=== PATIENT | male | born 1975 | race African-American/Black ===

== ENCOUNTER 2021-01-28 12:02 | Outpatient (REF) | payer OTHER, SELFPAY ==
[2021-01-28 14:26] LABS: Alanine Aminotransferase 28 U/L (0-40); Albumin Level 4.4 g/dL (3.5-5.0); Alkaline Phosphatase 71 U/L (39-117); Anion Gap 13 (12-20); Aspartate Amino Transferase 15 U/L (5-37); Bilirubin Total 0.5 mg/dL (0.0-1.0); Blood Urea Nitrogen 20 mg/dL (9-16); Calcium 9.3 mg/dL (8.4-10.2); Carbon Dioxide 24 mmol/L (22-29); Chloride 106 mmol/L (96-108); Cholesterol 139 mg/dL; Estimated Glomerular Filt Rate 54; Glucose Fasting 227 mg/dL (60-99); HDL Cholesterol 41 mg/dL; LDL Cholesterol Calculated 81 mg/dl; Potassium 4.9 mmol/L (3.3-5.1); Sodium 138 mmol/L (135-145); Total Protein 7.3 g/dL (6.5-8.0); Triglycerides 88 mg/dL
[2021-01-28 14:29] LABS: Creatinine Urine 142.81 mg/dL; Microalbum/Creatinine Ratio Ur 151.9 ug/mg cr
[2021-01-28 14:35] LABS: Estimated Average Glucose 246 mg/dL; Hemoglobin A1c % 10.2 %
== END 2021-01-28 12:03 | disposition home or self-care (01) ==
LOC: HO.HMGCLDS 12:02
PROVIDERS: PCP Internal Medicine; Visit Provider Internal Medicine
DX: E11.29 Type 2 diabetes mellitus with other diabetic kidney complication (principal); E78.5 Hyperlipidemia, unspecified; I10 Essential (primary) hypertension
CPT/HCPCS: 36415; 80053; 80061; 82043; 83036

== ENCOUNTER 2021-05-18 11:15 | Outpatient (REF) | payer OTHER, SELFPAY ==
[2021-05-18 14:06] LABS: Estimated Average Glucose 258 mg/dL; Hemoglobin A1c % 10.6 %
[2021-05-18 14:34] LABS: Alanine Aminotransferase 29 U/L (0-40); Anion Gap 11 (12-20); Aspartate Amino Transferase 16 U/L (5-37); Blood Urea Nitrogen 13 mg/dL (9-16); Calcium 8.9 mg/dL (8.4-10.2); Carbon Dioxide 27 mmol/L (22-29); Chloride 108 mmol/L (96-108); Cholesterol 99 mg/dL; Estimated Glomerular Filt Rate 60; Glucose Fasting 129 mg/dL (60-99); HDL Cholesterol 35 mg/dL; LDL Cholesterol Calculated 54 mg/dl; Potassium 4.7 mmol/L (3.3-5.1); Sodium 141 mmol/L (135-145); Triglycerides 53 mg/dL
== END 2021-05-18 11:16 | disposition home or self-care (01) ==
LOC: HO.HMGCLDS 11:15
PROVIDERS: PCP Internal Medicine; Visit Provider Internal Medicine
DX: E11.29 Type 2 diabetes mellitus with other diabetic kidney complication (principal); I10 Essential (primary) hypertension; E78.5 Hyperlipidemia, unspecified
CPT/HCPCS: 36415; 80048; 80061; 83036; 84450; 84460

== ENCOUNTER 2023-06-13 13:32 | Outpatient (AMB) | payer OTHER, SELFPAY ==
--- NOTE | 2023-06-13 13:31 | MHC.PC.OV ---
Vital Signs 06/13/23 14:10 Height 5 ft 8 in Weight 192 lb BMI 29.2 BP 120/70 Blood Pressure Location Lt brachial Position Sitting Pulse 75 Pulse Source Pulse Oximeter Pulse Oximetry (%) 97 Oxygen Delivery Method Room Air Intake Visit Reasons: Annual PE/Overdue last seen 05/24 Intake Note: patient is here today for annual f/u Allergies No Known Allergies Allergy (Verified 06/13/23 14:15) Medication List - Last Reconciled 06/13/23 by Leila Barker MD atorvastatin 20 mg PO DAILY flash glucose scanning reader ([employer] Felicia 2 Ulysses) As directed flash glucose sensor (FreeStyle Felicia 14 Day Sensor kit) As directed-need PCP appt for more refills insulin glargine (Lantus Solostar U-100 Insulin) 62 units subcut QPM lisinopril 10 mg PO QAM pen needle, diabetic (BD Ultra-Fine Camelia Pen Needle) As directed once a day Tobacco use date assessed: 06/13/23 Dental Screening Dental Screen Date: 06/13/23 Did you have a dental visit in the last 12 months?: No Did you have a dental problem in the last 6 months where you did not have access to dental care?: No Was dental information given to patient?: Yes HPI Annual PE/Overdue last seen 05/24 HPI Details 47-year-old male with diabetes mellitus, hypertension, dyslipidemia, here today for his physical exam and follow-up. He has been noncompliant with his follow-up appointments and taking his medications, his latest hemoglobin A1c today is at 11.8%. He is overdue for his diabetes retinopathy screening in a foot exam. [facility] Medical History (Updated 06/13/23 @ 14:35 by Leila Barker MD) Rash of both feet Diabetes mellitus with kidney complication, with long-term current use of insulin Essential hypertension Type 2 diabetes mellitus with other diabetic kidney complication Surgical History No pertinent past surgical history Family History Father Diabetes mellitus Mother Diabetes mellitus Maternal Grandfather Diabetes mellitus Maternal Grandmother Diabetes mellitus Paternal Grandfather Diabetes mellitus Paternal Grandmother Diabetes mellitus Maternal Uncle Substance use disorder Mental health disorder Maternal Uncle Substance use disorder Mental health disorder Paternal Uncle Substance use disorder Mental health disorder Paternal Uncle Substance use disorder Mental health disorder Social History Housing: House Alcohol intake: current Alcohol intake frequency: a few times a month Patient Tobacco Use Status: Never used Tobacco Current occupational status: employed Questionnaire PHQ-9 Over the last 2 weeks, how often have you been bothered by any of the following problems? 1. Little interest or pleasure in doing things: not at all 2. Feeling down, depressed, or hopeless: several days 3. Trouble falling or staying asleep, or sleeping too much: several days 4. Feeling tired or having little energy: several days 5. Poor appetite or overeating: not at all 6. Feeling bad about yourself - or that you are a failure or have let yourself or your family down: not at all 7. Trouble concentrating on things, such as reading the newspaper or watching television: not at all 8. Moving or speaking so slowly that other people could have noticed. Or the opposite - being so fidgety or restless that you have been moving around a lot more than usual: not at all 9. Thoughts that you would be better off or of hurting yourself in some way: not at all Total score: 3 Depression Screening Interpretation: Negative Depression Screening Done: Yes 74387 - PHQ-9 Billing: Yes Source: Developed by Drs. Kai Lawson, Dian Alvarez, Umer Castillo and colleagues, with an educational ladonna from [employer]. Thrive Questionnaire Date Thrive assessed: 06/13/23 I am a: Patient What is your living situation today?: I have a steady place to live Within the past 12 months, did the food you bought not last and you didn't have the money to get more?: Never true Within the past 12 months, did you worry whether your food would run out before you got money to buy more?: Never true Do you have trouble paying for medicines?: No Do you have trouble getting transportation to medical appointments?: No Do you have trouble paying your heating and electricity bill?: No Do you have trouble taking care of your child, family member or friend?: No Do you have trouble with day-to-day activities such as bathing, preparing meals, shopping, managing finances, etc.?: No Are you currently unemployed and looking for a job?: No Are you interested in more education?: Yes AUDIT C Alcohol Use Questionnaire (AUDIT-C) 1. How often do you have a drink containing alcohol?: Monthly or less 2. How many drinks containing alcohol do you have on a typical day when you are drinking?: 1 or 2 Total Score: 1 TERESA-7 AMB Questionnaire TERESA-7 Date TERESA - 7 assessed: 06/13/23 Feeling nervous, anxious, or on edge: 1 = Several days Not being able to stop or control worryin = Not at all Worrying too much about different things: 3 = Nearly every day Trouble relaxin = More than half the days Being so restless that it is hard to sit still: 0 = Not at all Becoming easily annoyed or irritable: 1 = Several days Feeling afraid as if something awful might happen: 0 = Not at all Total TERESA-7 score (0-4 normal; 5-9 mild; 10-14 moderate; 15-21 severe): 7 Source: Developed by Drs. Kai Lawson, Dian Alvarez, Umer Castillo and colleagues, with an educational ladonna from [employer]. TERESA-7 Assessment Billing TERESA-7 Assessment Tool: TERESA-7 Assessment 80975 Review of Systems Const Denies body aches, Reports fatigue, Denies fever(s), Denies headache(s), Reports malaise and Denies weakness Eyes Denies change in vision, Denies eye discharge and Denies itchy eyes ENT Denies dizziness, Denies headache(s), Denies nasal congestion, Denies nasal discharge and Denies sore throat Card Denies chest pain, Denies lightheadedness, Denies palpitations and Denies dyspnea Resp Denies chest congestion, Denies cough, Denies dyspnea and Denies wheezing GI Denies abdominal pain, Denies change in bowel habits and Denies heartburn Denies hematuria, Denies difficulty urinating, Denies dysuria, Reports nocturia, Reports urinary frequency and Reports urinary urgency Musc Denies arthralgias and Denies joint swelling Skin/Breast Denies lesions and Reports rash (Erythematous patch on sides of feet as well as on the plantar aspect.) Neuro Denies dizziness, Denies headache(s) and Denies weakness Psych Reports no additional complaints Endo Reports fatigue, Reports polydipsia, Reports polyuria and Denies palpitations Demar/Lymph Denies easy bruising Aller/Immun Denies itchy eyes, Denies seasonal rhinorrhea and Denies wheezing Physical exam (Primary Care) Vital Signs: Last Vital Signs Pulse 75 06/13/23 14:10 BP 120/70 06/13/23 14:10 Pulse Ox 97 06/13/23 14:10 Oxygen Delivery Method Room Air 06/13/23 14:10 BMI result Body Mass Index 29.2 Tobacco/Smoking Status: Tobacco use Status Tobacco use date assessed 06/13/23 06/13/23 14:18 Patient Tobacco Use Status Never used Tobacco 06/13/23 13:32 PHQ-9: PHQ-9 Score PHQ-9: Total score 3 06/13/23 14:30 Depression Screening Interpretation: Negative Thrive Assessment: Date of Thrive Assessment Date Thrive assessed 06/13/23 06/13/23 14:18 Const General: cooperative, comfortable and no acute distress Orientation/consciousness: patient oriented x3 Limitations: no limitations HENMT Head: Yes normocephalic Ears: hearing grossly normal bilaterally, external ears normal, TM's normal bilaterally and EAC's normal Eyes General: appearance normal, both eyes and all related structures Conjunctivae: conjunctivae normal Pupils: Equal, round and reactive pupils present EOM: EOMs intact bilaterally Neck Neck: Yes full ROM, Yes no lymphadenopathy and Yes supple Resp Effort & Inspection: normal respiratory effort and able to speak in complete sentences Auscultation: clear to auscultation bilaterally Cardio Rate: regular rate Rhythm: regular rhythm Heart sounds: S1 normal heart sound present and S2 normal heart sound present GI Inspection: Yes normal to inspection Palpation (GI): Soft to palpation, Firmness to palpation present (GI), nontender and no masses Auscultation: normal bowel sounds Skin Other: Erythematous patch on medial aspect of feet, and on plantar aspect as well Neuro General: patient oriented x3, gait normal, tone normal, moves all extremities, Normal light touch and pain sensation and no focal motor deficits Cranial nerves: Yes Equal, round and reactive pupils present Cognition (Neuro): normal cognition Gait exam (Neuro): Normal gait present Motor exam (neuro): 5/5 motor strength present throughout Extrem General: Yes normal to inspection, Yes full ROM, Yes no joint enlargement, Yes no clubbing, cyanosis or edema, Yes no pedal edema, Yes no calf tenderness and Yes normal gait Psych Appearance: grossly normal and well kempt Mental Status: mental status grossly normal Speech and movement: Normal speech and movement present Affect: normal affect Attitude: cooperative Office Procedures Flu Questionnaire Does the patient have a severe egg allergy?: No Does the patient have severe life threatening allergies?: No Does the patient have a fever or illness today?: No Has the patient ever had Guillain-[place] Syndrome?: No Has the patient ever had any past reaction to a flu shot?: No Results AMB Hemoglobin A1c AMB Hemoglobin A1c 11.8 % Last Edit by Yesenia Ghotra CMA on 06/13/23 14:21 Immunizations flu vacc [id number] 6mos up(PF) 60 mcg(15 mcgx4)/0.5 mL IM syringe Performing Provider: Leila Barker MD Performing Location: [facility] Administered by: Yesenia Ghotra CMA on 06/13/23 14:26 Dose Route Admin Location Dispensed Lot Number Expiration Date NDC Shim Plug Cutter 0.5 mL IM Right Deltoid 0.5 mL [id number] 03/02/24 [id number] GetBulb VIS Given Date VIS Provided VIS Publication Date 06/13/23 Single Vaccine 21 Eligibility Eligibility Date Funding Source Not VFC Eligible 06/13/23 Private Results Reviewed Results Reviewed: Laboratory Last Values Hgb A1c (Clinic) 11.8 % (4.0-6.0) H 06/13/23 14:19 Assessment and Plan Assessment & Plan (1) Annual visit for general adult medical examination with abnormal findings: Code(s): Z00.01 - Encounter for general adult medical examination with abnormal findings Plan: Will check appropriate labs. Recommended dental visit every 6 months and regular eye exams, at least every year for his diabetes retinopathy screening.. Take adequate calcium in diet and vitamin-D 3 at 2000 IU per cap once a day, in addition to weight-bearing exercises to help maintain good muscle tone and weight control. Advised to get his COVID booster and get his yearly flu shot, the latter given today. Advised to get a screening colonoscopy but patient declined at present time. (2) Diabetes mellitus with kidney complication, with long-term current use of insulin: Code(s): E11.29 - Type 2 diabetes mellitus with other diabetic kidney complication; Z79.4 - half-way (current) use of insulin Plan: Started on Jardiance 25 mg daily in a.m. take at least an hour before any food or drink and and do not take together with other medications continued with insulin glargine but increase dose to 6 2 units, continue with metformin ER 500 mg daily in the evening. Referred to see Monika Davalos conservation educator for further guidance. Schedule follow-up appointment with me in 6 weeks regarding diabetes (3) Essential hypertension: Code(s): I10 - Essential (primary) hypertension Plan: Blood pressure at goal of less than 130/80. Continue with lisinopril 10 mg daily. Reinforced importance of following a low sodium diet, getting regular exercise, and lowering stress levels. (4) Dyslipidemia: Code(s): E78.5 - Hyperlipidemia, unspecified Plan: Fasting lipid panel ordered today . Continue with atorvastatin 20 mg daily , in addition to adherence to low-cholesterol diet and regular exercise, at least 30 minutes 3 to 4 times a week. Advised patient to make healthy food choices, eat more fruits, vegetables, whole grains, wild caught fish and low-fat dairy. Limit amount of meat and fried or fatty food products, as well as processed foods and fast foods. Follow-up scheduled with repeat fasting lipid panel in months. (5) Type 2 diabetes mellitus with other diabetic kidney complication: Code(s): E11.29 - Type 2 diabetes mellitus with other diabetic kidney complication Plan: Recent lab results reviewed with patient, with sugar and hemoglobin A1c uncontrolled. Continue with metformin ER 500 mg daily at supper time, continue with Jardiance 25 mg to be taken daily in the morning an hour before any food or drink. l continue to check fasting blood sugar at home, maintain log and bring to next appointment for review. Reinforced diabetic diet and regular exercise with patient. Counseled regarding importance of yearly diabetes retinopathy screening. Patient advised to inspect feet daily, for any signs of injury, callus or infection. Compliance with diet and regular exercise again stressed. Blood pressure goal is less than 130/80, goal LDL is less than 100 and goal hemoglobin A1c is less than 7% follow-up appointment made in---months, after fasting labs done. (6) Rash of both feet: Code(s): R21 - Rash and other nonspecific skin eruption Plan: Podiatry consult ordered Orders: Orders AMB Hemoglobin A1c 06/13/23. - Type 2 diabetes mellitus with other diabetic kidney complication Lipid Panel 06/13/23. 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 Panel Fast 06/13/23. 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 - Type 2 diabetes mellitus with other diabetic kidney complication, R21 - Rash and other nonspecific skin eruption Medications: New Jardiance (empagliflozin) 25 mg PO QAM 30 tabs 5RF NS . 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 insulin metformin ER 500 mg PO QPM 30 tabs 4RF E11.29 - Type 2 diabetes mellitus with other diabetic kidney complication, Z79.4 - half-way (current) use of insulin Changed From insulin glargine 60 units (0.6 mL) subcut QPM 45 mL 3RF E11.29 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 insulin To insulin glargine (Lantus Solostar U-100 Insulin) 62 units subcut QPM E11.29 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
[2023-06-13 14:10] VITALS: BP 120/70; PULSE 75; O2SAT 97; BMI 29.2
== END 2023-06-13 14:42 | disposition home or self-care (01) ==
PROVIDERS: PCP Internal Medicine; Visit Provider Internal Medicine
DX: Z00.01 Encounter for general adult medical examination with abnormal findings (principal); E11.29 Type 2 diabetes mellitus with other diabetic kidney complication; Z79.4 Long term (current) use of insulin; I10 Essential (primary) hypertension; E78.5 Hyperlipidemia, unspecified; R21 Rash and other nonspecific skin eruption
CPT/HCPCS: 83036; 90471; 90686; 99214; 99396

== ENCOUNTER 2023-07-23 08:48 | Outpatient (REF) | payer OTHER, SELFPAY ==
[2023-07-23 11:20] LABS: MANUAL DIFF FLAG NO
[2023-07-23 11:41] LABS: Basophils Percent Auto 0.4 % (0-2); Eosinophils Percent Auto 0.8 % (0-4); Hematocrit 44.2 % (42.0-52.0); Hemoglobin 14.3 g/dl (14.0-18.0); Imm Gran Abs Auto 0.01 X10*3/uL (0.00-0.03); Imm Gran Pct Auto 0.2 % (0.0-0.4); Lymphocytes Absolute Auto 1.7 X10*3/uL (1.2-4.9); Lymphocytes Percent Auto 33.7 % (20-40); Mean Corpuscular HGB Conc 32.4 g/dl (31.0-36.0); Mean Corpuscular Hemoglobin 27.2 pg (27.0-33.0); Mean Corpuscular Volume 84.2 fL (80.0-98.0); Mean Platelet Volume 8.9 fL (9.4-12.4); Monocytes Absolute Auto 0.5 X10*3/uL (0.1-1.2); Monocytes Percent Auto 9.4 % (2-11); Neutrophils Absolute Auto 2.7 x10*3/uL (2.0-8.3); Neutrophils Percent Auto 55.5 % (45-73); Platelet Count 294 X10*3/uL (160-400); Red Blood Count 5.25 X10*6/uL (4.60-5.80); Red Cell Distribution Width 13.2 % (11.0-16.0); White Blood Count 4.9 X10*3/uL (4.8-10.8)
[2023-07-23 12:06] LABS: Creatinine Urine 102.23 mg/dL; Microalbum/Creatinine Ratio Ur 105.6 ug/mg cr (<30)
[2023-07-23 12:31] LABS: Vitamin D 25-OH Total 31.3 ng/mL (>30)
[2023-07-23 12:35] LABS: Anion Gap 10 (12-20)
[2023-07-23 12:40] LABS: Alanine Aminotransferase 22 U/L (0-40); Albumin Level 4.3 g/dL (3.5-5.0); Alkaline Phosphatase 61 U/L (39-117); Aspartate Amino Transferase 17 U/L (5-37); Bilirubin Total 0.2 mg/dL (0.0-1.0); Blood Urea Nitrogen 17 mg/dL (9-16); Calcium 9.2 mg/dL (8.4-10.2); Carbon Dioxide 27 mmol/L (22-29); Chloride 106 mmol/L (96-108); Cholesterol 169 mg/dL (<200); Estimated Glomerular Filt Rate 55; Glucose Fasting 139 mg/dL (60-99); HDL Cholesterol 40 mg/dL (>40); LDL Cholesterol Calculated 109 mg/dL (<100); Sodium 139 mmol/L (135-145); Total Protein 7.4 g/dL (6.5-8.0); Triglycerides 100 mg/dL (<150)
== END 2023-07-23 08:49 | disposition home or self-care (01) ==
LOC: HO.HMGCLDS 08:48
PROVIDERS: PCP Internal Medicine; Visit Provider Internal Medicine
DX: Z00.01 Encounter for general adult medical examination with abnormal findings (principal); E11.29 Type 2 diabetes mellitus with other diabetic kidney complication; I10 Essential (primary) hypertension; E78.5 Hyperlipidemia, unspecified; Z79.4 Long term (current) use of insulin
CPT/HCPCS: 36415; 80053; 80061; 82043; 82306; 82570; 85025

== ENCOUNTER 2023-07-25 10:30 | Outpatient (AMB) | payer OTHER, SELFPAY ==
--- NOTE | 2023-07-25 10:35 | A.OFFPC_ITS ---
Vital Signs 07/25/23 10:36 Height 5 ft 8 in Weight 189 lb BMI 28.7 BP 132/78 Blood Pressure Location Rt brachial Position Sitting Pulse 95 Pulse Source Pulse Oximeter Pulse Oximetry (%) 99 Oxygen Delivery Method Room Air Intake Visit Reasons: 6 week fu Intake Note: pt is here for a 6 week follow up for DM Allergies No Known Allergies Allergy (Verified 07/25/23 10:55) Medication List - Last Reconciled 07/25/23 by Leila Barker MD blood-glucose sensor (FreeStyle Felicia 3 Sensor device) As directed flash glucose scanning reader (FreeStyle Felicia 2 [place]) As directed flash glucose sensor (FreeStyle Felicia 14 Day Sensor kit) As directed-need PCP appt for more refills insulin glargine (Basaglar KwikPen U-100 Insulin) 68 units (0.68 mL) subcut DAILY Jardiance (empagliflozin) 25 mg PO QAM NS lisinopril 10 mg PO QAM metformin ER 500 mg PO QPM pen needle, diabetic (BD Ultra-Fine Camelia Pen Needle) As directed once a day Tobacco use date assessed: 07/25/23 Dental Screening Dental Screen Date: 07/25/23 Did you have a dental visit in the last 12 months?: No Did you have a dental problem in the last 6 months where you did not have access to dental care?: No Was dental information given to patient?: No HPI 6 week fu HPI Details 47 year old Male, with hypertension, and diabetes mellitus, here today for follow-up on his diabetes, after starting on Jardiance 25 mg 1 tab taken morning on the last visit in addition to taking metformin ER 500 mg at night, and Basaglar insulin 68 units once a day. He has been checking his blood sugar at home his freestyle Felicia and his states that his blood sugar in the morning has been running below 135 most of the time. Has been trying to follow also recommended diet and has started exercising. [facility] Medical History (Updated 07/28/23 @ 00:15 by Leila Barker MD) Rash of both feet Diabetes mellitus with kidney complication, with long-term current use of insulin Essential hypertension Surgical History No pertinent past surgical history Family History Father Diabetes mellitus Mother Diabetes mellitus Maternal Grandfather Diabetes mellitus Maternal Grandmother Diabetes mellitus Paternal Grandfather Diabetes mellitus Paternal Grandmother Diabetes mellitus Maternal Uncle Substance use disorder Mental health disorder Maternal Uncle Substance use disorder Mental health disorder Paternal Uncle Substance use disorder Mental health disorder Paternal Uncle Substance use disorder Mental health disorder Housing: House Alcohol intake: current Alcohol intake frequency: a few times a month Patient Tobacco Use Status: Never used Tobacco e-Cigarette/Vaping Use: Never Used Second Hand Smoke Exposure: No Current occupational status: employed Cognitive needs: No Hearing needs: No Vision needs: No Questionnaire PHQ-9 Over the last 2 weeks, how often have you been bothered by any of the following problems? 1. Little interest or pleasure in doing things: not at all 2. Feeling down, depressed, or hopeless: not at all 3. Trouble falling or staying asleep, or sleeping too much: several days 4. Feeling tired or having little energy: several days 5. Poor appetite or overeating: not at all 6. Feeling bad about yourself - or that you are a failure or have let yourself or your family down: several days 7. Trouble concentrating on things, such as reading the newspaper or watching television: not at all 8. Moving or speaking so slowly that other people could have noticed. Or the opposite - being so fidgety or restless that you have been moving around a lot more than usual: not at all 9. Thoughts that you would be better off or of hurting yourself in some way: not at all Total score: 3 Depression Screening Interpretation: Negative Depression Screening Done: Yes 59838 - PHQ-9 Billing: Yes Source: Developed by Drs. Kai Lawson, Dian Alvarez, Umer Castillo and colleagues, with an educational ladonna from [employer]. Thrive Questionnaire Date Thrive assessed: 07/25/23 I am a: Patient What is your living situation today?: I have a steady place to live Within the past 12 months, did the food you bought not last and you didn't have the money to get more?: Never true Within the past 12 months, did you worry whether your food would run out before you got money to buy more?: Sometimes True Do you have trouble paying for medicines?: No Do you have trouble getting transportation to medical appointments?: No Do you have trouble paying your heating and electricity bill?: Yes Do you have trouble taking care of your child, family member or friend?: No Do you have trouble with day-to-day activities such as bathing, preparing meals, shopping, managing finances, etc.?: No Are you currently unemployed and looking for a job?: No Are you interested in more education?: Yes AUDIT C Alcohol Use Questionnaire (AUDIT-C) 1. How often do you have a drink containing alcohol?: Monthly or less 2. How many drinks containing alcohol do you have on a typical day when you are drinking?: 3 or 4 3. How often do you have six or more drinks on one occasion?: Less than monthly Total Score: 3 TERESA-7 AMB Questionnaire TERESA-7 Date TERESA - 7 assessed: 07/25/23 Feeling nervous, anxious, or on edge: 1 = Several days Not being able to stop or control worryin = Several days Worrying too much about different things: 1 = Several days Trouble relaxin = Not at all Being so restless that it is hard to sit still: 0 = Not at all Becoming easily annoyed or irritable: 1 = Several days Feeling afraid as if something awful might happen: 0 = Not at all Total TERESA-7 score (0-4 normal; 5-9 mild; 10-14 moderate; 15-21 severe): 4 Source: Developed by Drs. Kai Lawson, Dian Alvarez, Umer Castillo and colleagues, with an educational ladonna from [employer]. TERESA-7 Assessment Billing TERESA-7 Assessment Tool: TERESA-7 Assessment 31464 Review of Systems Const Denies body aches, Denies headache(s) and Denies weakness Eyes Denies change in vision ENT Denies dizziness, Denies headache(s) and Denies nasal congestion Card Denies chest pain, Denies lightheadedness and Denies dyspnea Resp Denies chest congestion, Denies cough, Denies dyspnea and Denies wheezing GI Denies abdominal pain, Denies change in bowel habits and Denies heartburn Denies hematuria, Denies difficulty urinating, Denies dysuria and Reports urinary frequency Musc Denies arthralgias and Denies joint swelling Skin/Breast Denies lesions Neuro Denies dizziness, Denies headache(s) and Denies weakness Psych Reports no additional complaints Endo Reports no additional complaints Demar/Lymph Denies easy bruising Aller/Immun Denies seasonal rhinorrhea and Denies wheezing Physical exam (Primary Care) Vital Signs: Last Vital Signs Pulse 95 07/25/23 10:36 BP 132/78 07/25/23 10:36 Pulse Ox 99 07/25/23 10:36 Oxygen Delivery Method Room Air 07/25/23 10:36 BMI result Body Mass Index 28.7 Tobacco/Smoking Status: Tobacco use Status Tobacco use date assessed 07/25/23 07/25/23 10:40 Patient Tobacco Use Status Never used Tobacco 07/25/23 10:35 e-Cigarette/Vaping Use Never Used 07/25/23 10:40 PHQ-9: PHQ-9 Score PHQ-9: Total score 4 07/25/23 11:10 Depression Screening Interpretation: Negative Thrive Assessment: Date of Thrive Assessment Date Thrive assessed 07/25/23 07/25/23 10:52 Const General: cooperative, comfortable and no acute distress Orientation/consciousness: patient oriented x3 HENMT Head: Yes normocephalic Ears: hearing grossly normal bilaterally, external ears normal, TM's normal bilaterally and EAC's normal Eyes General: appearance normal, both eyes and all related structures Conjunctivae: conjunctivae normal Pupils: Equal, round and reactive pupils present EOM: EOMs intact bilaterally Neck Neck: Yes full ROM, Yes no lymphadenopathy and Yes supple Resp Effort & Inspection: normal respiratory effort and able to speak in complete sentences Auscultation: clear to auscultation bilaterally Cardio Rate: regular rate Rhythm: regular rhythm Heart sounds: S1 normal heart sound present and S2 normal heart sound present GI Inspection: Yes normal to inspection Palpation (GI): Soft to palpation, nontender and no masses Auscultation: normal bowel sounds Neuro General: patient oriented x3, gait normal, tone normal, moves all extremities, Normal light touch and pain sensation and no focal motor deficits Cranial nerves: Yes Equal, round and reactive pupils present Cognition (Neuro): normal cognition Gait exam (Neuro): Normal gait present Motor exam (neuro): 5/5 motor strength present throughout Extrem General: Yes normal to inspection, Yes full ROM, Yes no joint enlargement, Yes no clubbing, cyanosis or edema, Yes no pedal edema, Yes no calf tenderness and Yes normal gait Psych Appearance: grossly normal and well kempt Mental Status: mental status grossly normal Speech and movement: Normal speech and movement present Affect: normal affect Attitude: cooperative Results Reviewed Results Reviewed: RUN: 07/28/23 0019 PAGE 1 [facility] [address] [place] [id number] Rivet Catcher: Donnell Sierra M.D. Specimen Inquiry Name: Blayne Loredo Nicholas Age/Sex: 47/M : 1975 Unit#: [id number] Attend Dr: Leila Barker MD Re07/23/23 Status: DEP REF [facility] Disch: SPEC : [id number] MELLISSA: 07/23/23 STATUS: COMP REQ : [id number] RECD: 07/23/[address]: Leila Barker MD COMP: 07/23/231 ENTERED: 07/23/[address] [facility] DR: ORDERED: CMP Fast, Lipid Panel, Vitamin D 25-OH Test Result Flag Reference Site Sodium 139 135-145 mmol/L Potassium 4.0 3.3-5.1 mmol/L CL 106 96-108 mmol/L CO2 27 22-29 mmol/L Gap 10 L 12-20 BUN 17 H 9-16 mg/dL Creat 1.39 0.5-1.4 mg/dL EGFR 55 NOTE: For -[place] individuals, multiply the result by 1.210. Chronic Kidney Disease: Estimated GFR < 60 mL/min/1.73m2 Severe Kidney Disease: Estimated GFR < 15 mL/min/1.73m2 FBS 139 H 60-99 mg/dL A fasting glucose of 126 mg/dl or greater on more than one occasion is considered diagnostic of diabetes. CA 9.2 8.4-10.2 mg/dL Total Bili 0.2 0.0-1.0 mg/dL AST (GOT) 17 5-37 U/L ALT (GPT) 22 0-40 U/L Protein, Total 7.4 6.5-8.0 g/dL Alb 4.3 3.5-5.0 g/dL Triglyceride 100 <150 mg/dL Desirable Triglyceride: less than 150 mg/dL Borderline High Triglyceride 150-199 mg/dL High Triglyceride: 200-499 mg/dL Very High Triglyceride: greater than or equal to 5OO mg/dL Cholesterol 169 <200 mg/dL Desirable Cholesterol: less than 200 mg/dL Borderline High Cholesterol: 200-239 mg/dL High Cholesterol: greater than 239 mg/dL LDL Calculated 109 H <100 mg/dL Desirable LDL: less than 100 mg/dL Near Optimal/Above Optimal LDL: 110-129 mg/dL Borderline High LDL: 130-159 mg/dL High LDL: 160-189 mg/dL Very High LDL: greater than or equal to 190 mg/dL HDL 40 L >40 mg/dL Desirable HDL: greater than 40 mg/dL Note: This HDL assay may give artificially low results in patients with liver disease. Alk Phos 61 39-117 U/L Vit D 25-OH Tot 31.3 >30 ng/mL Health Based Reference Values* < 20 ng/mL Deficient 20-30 ng/mL Insufficient > 30 ng/mL Sufficient Assessment and Plan Assessment & Plan (1) Diabetes mellitus with kidney complication, with long-term current use of insulin: Code(s): E11.29 - Type 2 diabetes mellitus with other diabetic kidney complication; Z79.4 - detention (current) use of insulin Plan: Reviewed recent glucose log with patient using his freestyle Felicia and his blood sugar has been improving a lot since starting Jardiance. Will continue him on current medications, and stressed importance of following recommended diet and getting regular exercise. Advised to get yearly diabetes retinopathy screening check and inspect feet regularly to check for any lesions . (2) Essential hypertension: Code(s): I10 - Essential (primary) hypertension Plan: Blood pressure at goal of less than 130/80. Continue with current medication. Reinforced importance of following a low sodium diet, getting regular exercise, and lowering stress levels. (3) Dyslipidemia: Code(s): E78.5 - Hyperlipidemia, unspecified Plan: Recent fasting lipids results reviewed with patient, which showe LDL cholesterol of 109 mg/dL. Stressed importance of following a low-cholesterol diet getting regular exercise, goal LDL is less than 100 mg/dL. Will repeat another fasting lipid panel in 3 months. Orders: Orders Basic Metabolic Panel Fasting 10/22/23. - Type 2 diabetes mellitus with other diabetic kidney complication, E78.5 - Hyperlipidemia, unspecified, I10 - Essential (primary) hypertension, Z79.4 - assistant terminal manager (current) use of insulin Hemoglobin A1c 10/22/23. - Type 2 diabetes mellitus with other diabetic kidney complication, E78.5 - Hyperlipidemia, unspecified, I10 - Essential (primary) hypertension, Z79.4 - assistant terminal manager (current) use of insulin Lipid Panel 10/22/23. - Type 2 diabetes mellitus with other diabetic kidney complication, E78.5 - Hyperlipidemia, unspecified, I10 - Essential (primary) hypertension, Z79.4 - assistant terminal manager (current) use of insulin Microalbumin, Random (w Creat) 10/22/23. - Type 2 diabetes mellitus with other diabetic kidney complication, E78.5 - Hyperlipidemia, unspecified, I10 - Essential (primary) hypertension, Z79.4 - detention (current) use of insulin Aspartate Amino Transferase 10/22/23. - Type 2 diabetes mellitus with other diabetic kidney complication, E78.5 - Hyperlipidemia, unspecified, I10 - Essential (primary) hypertension, Z79.4 - detention (current) use of insulin Alanine Aminotransferase 10/22/23. - Type 2 diabetes mellitus with other diabetic kidney complication, E78.5 - Hyperlipidemia, unspecified, I10 - Essential (primary) hypertension, Z79.4 - assistant terminal manager (current) use of insulin Medications: New BD Ultra-Fine Camelia Pen Needle (pen needle, diabetic) As directed 100 ea 5RF NS . - Type 2 diabetes mellitus with other diabetic kidney complication, Z79.4 - detention (current) use of insulin Coding Level of Care Code Est Pt Level 3 (66450) Diagnoses Diabetes mellitus with kidney complication, with long-term current use of insulin ; Z79.4 Essential hypertension I10 Dyslipidemia E78.5 Additional Codes TERESA-7 Assessment Billing - TERESA-7 Assessment Tool: TERESA-7 Assessment [id number] ([id number])
[2023-07-25 10:36] VITALS: BP 132/78; PULSE 95; O2SAT 99; BMI 28.7
== END 2023-07-25 13:43 | disposition home or self-care (01) ==
PROVIDERS: PCP Internal Medicine; Visit Provider Internal Medicine
DX: E11.29 Type 2 diabetes mellitus with other diabetic kidney complication (principal); Z79.4 Long term (current) use of insulin; I10 Essential (primary) hypertension; E78.5 Hyperlipidemia, unspecified
CPT/HCPCS: 99213

== ENCOUNTER 2023-11-08 09:39 | Outpatient (AMB) | payer OTHER, SELFPAY ==
--- NOTE | 2023-11-08 09:54 | MHC.PC.OV ---
Vital Signs 11/08/23 09:56 Height 5 ft 8 in Weight 189 lb 8 oz BMI 28.8 BP 124/76 Blood Pressure Location Lt brachial Position Sitting Pulse 104 H Pulse Source Pulse Oximeter Pulse Oximetry (%) 96 Oxygen Delivery Method Room Air Intake Visit Reasons: f/u labs Intake Note: Pt is here today for labs, he did not get labs done. Allergies No Known Allergies Allergy (Verified 11/08/23 10:28) Medication List - Last Reconciled 11/08/23 by Leila Barker MD BD Ultra-Fine Camelia Pen Needle (pen needle, diabetic) Use to inject insulin once a day NS blood-glucose sensor (FreeStyle Felicia 3 Sensor device) As directed flash glucose scanning reader (FreeStyle Felicia 2 [place]) As directed flash glucose sensor (FreeStyle Felicia 14 Day Sensor kit) As directed-need PCP appt for more refills Jardiance (empagliflozin) 25 mg PO QAM NS Lantus Solostar U-100 Insulin (insulin glargine) 68 units (0.68 mL) subcut QPM NS lisinopril 10 mg PO QAM metformin ER 500 mg PO QPM Tobacco use date assessed: 11/08/23 Dental Screening Dental Screen Date: 11/08/23 Did you have a dental visit in the last 12 months?: No Did you have a dental problem in the last 6 months where you did not have access to dental care?: No Was dental information given to patient?: No HPI f/u labs HPI Details 48-year-old male with diabetes mellitus, hyperlipidemia, and hypertension, here today for his overdue follow-up visit. He has not been very compliant with his medications states that he ran out of his meds for a month, has not been following recommended diet and states that he is so busy at work, that he has not been exercising at all. Forgot to get his labs done prior to his visit complains of feeling tired all the time, no energy. Hemoglobin A1c today is at 10.7%. [facility] Medical History (Updated 11/12/23 @ 03:11 by Leila Barker MD) Diabetes mellitus with kidney complication, with long-term current use of insulin Essential hypertension Surgical History No pertinent past surgical history Family History Father Diabetes mellitus Mother Diabetes mellitus Maternal Grandfather Diabetes mellitus Maternal Grandmother Diabetes mellitus Paternal Grandfather Diabetes mellitus Paternal Grandmother Diabetes mellitus Maternal Uncle Substance use disorder Mental health disorder Maternal Uncle Substance use disorder Mental health disorder Paternal Uncle Substance use disorder Mental health disorder Paternal Uncle Substance use disorder Mental health disorder Social History Housing: House Alcohol intake: current Alcohol intake frequency: a few times a month Patient Tobacco Use Status: Never used Tobacco e-Cigarette/Vaping Use: Never Used Second Hand Smoke Exposure: No Current occupational status: employed Cognitive needs: No Hearing needs: No Vision needs: No Questionnaire PHQ-9 Over the last 2 weeks, how often have you been bothered by any of the following problems? Depression Screening Interpretation: Negative Depression Screening Done: Yes Source: Developed by Drs. Kai Lawson, Dian Alvarez, Umer Castilol and colleagues, with an educational ladonna from [employer]. Thrive Questionnaire Date Thrive assessed: 07/25/23 AUDIT C Alcohol Use Questionnaire (AUDIT-C) 1. How often do you have a drink containing alcohol?: Monthly or less 2. How many drinks containing alcohol do you have on a typical day when you are drinking?: 1 or 2 3. How often do you have six or more drinks on one occasion?: Never Total Score: 1 Score Reviewed/Action Taken: Yes TERESA-7 AMB Questionnaire TERESA-7 Date TERESA - 7 assessed: 07/25/23 Source: Developed by Drs. Kai Lawson, Dian Alvarez, Umer Castillo and colleagues, with an educational ladonna from [employer]. Review of Systems Const Denies body aches, Denies headache(s), Reports lethargy, Reports malaise and Denies weakness Eyes Denies change in vision ENT Denies dizziness, Denies headache(s), Denies nasal congestion and Denies disequilibrium Card Denies chest pain, Denies lightheadedness and Denies dyspnea Resp Denies chest congestion, Denies cough, Denies dyspnea and Denies wheezing GI Denies abdominal pain, Denies change in bowel habits and Denies heartburn Denies hematuria, Denies difficulty urinating, Denies dysuria and Reports urinary frequency Musc Denies arthralgias, Denies joint swelling and Denies tingling Skin/Breast Denies lesions Neuro Denies dizziness, Denies headache(s), Denies tingling, Denies disequilibrium and Denies weakness Psych Reports no additional complaints Endo Reports polydipsia and Reports polyuria Demar/Lymph Denies easy bruising Aller/Immun Denies seasonal rhinorrhea and Denies wheezing Physical exam (Primary Care) Vital Signs: Last Vital Signs Pulse 104 H 11/08/23 09:56 BP 124/76 11/08/23 09:56 Pulse Ox 96 11/08/23 09:56 Oxygen Delivery Method Room Air 11/08/23 09:56 BMI result Body Mass Index 28.8 Tobacco/Smoking Status: Tobacco use Status Tobacco use date assessed 11/08/23 11/08/23 10:03 Patient Tobacco Use Status Never used Tobacco 11/08/23 09:55 e-Cigarette/Vaping Use Never Used 11/08/23 09:55 Depression Screening Interpretation: Negative Thrive Assessment: Date of Thrive Assessment Date Thrive assessed 07/25/23 11/08/23 09:55 Const General: cooperative, comfortable and no acute distress Orientation/consciousness: patient oriented x3 HENMT Head: Yes normocephalic Ears: external ears normal, TM's normal bilaterally and EAC's normal Mouth: Normal oral and palatal mucosa present, oropharynx normal and moist mucous membranes Eyes General: appearance normal, both eyes and all related structures Conjunctivae: conjunctivae normal Pupils: Equal, round and reactive pupils present EOM: EOMs intact bilaterally Neck Neck: Yes full ROM, Yes no lymphadenopathy and Yes supple Resp Effort & Inspection: normal respiratory effort and able to speak in complete sentences Auscultation: clear to auscultation bilaterally Cardio Rate: regular rate Rhythm: regular rhythm Heart sounds: S1 normal heart sound present and S2 normal heart sound present GI Inspection: Yes normal to inspection Palpation (GI): Soft to palpation, nontender and no masses Auscultation: normal bowel sounds Skin General skin exam: no rashes or lesions noted Neuro General: patient oriented x3, gait normal, tone normal, moves all extremities, Normal light touch and pain sensation and no focal motor deficits Cranial nerves: Yes Equal, round and reactive pupils present Cognition (Neuro): normal cognition Gait exam (Neuro): Normal gait present Motor exam (neuro): 5/5 motor strength present throughout Extrem General: Yes normal to inspection, Yes full ROM, Yes no joint enlargement, Yes no clubbing, cyanosis or edema, Yes no pedal edema, Yes no calf tenderness and Yes normal gait Psych Appearance: grossly normal and well kempt Mental Status: mental status grossly normal Speech and movement: Normal speech and movement present Affect: normal affect Attitude: cooperative Results AMB Hemoglobin A1c AMB Hemoglobin A1c 10.7 % Last Edit by Stella Aleman MA on 11/08/23 10:20 Results Reviewed Results Reviewed: Laboratory Last Values Hgb A1c (Clinic) 10.7 % (4.0-6.0) H 11/08/23 10:18 Assessment and Plan Assessment & Plan (1) Diabetes mellitus with kidney complication, with long-term current use of insulin: Code(s): E11.29 - Type 2 diabetes mellitus with other diabetic kidney complication; Z79.4 - group home (current) use of insulin Plan: Were controlled diabetes mellitus, force importance of taking medications as directed. Increased dose of metformin to 750 mg per tablet extended release, to be taken twice a day with meals. Prescription sent for Lantus Solostar 68 units subcu given at night, refilled prescription for Jardiance 25 mg taken once a day in a.m. as well as chief refill sent for his freestyle Felicia 3 sensor device. Reminded to get his diabetes retinopathy screening once a year, inspect feet for any unusual lesions calluses sore source.. Get fasting labs done (2) Essential hypertension: Code(s): I10 - Essential (primary) hypertension Plan: Continue lisinopril 10 mg once a day in a.m. (3) Dyslipidemia: Code(s): E78.5 - Hyperlipidemia, unspecified Plan: Fasting lipid panel has already been ordered. Reinforced importance of following a low cholesterol diet and getting regular exercise. Medications: New metformin ER 750 mg PO BID 90 days 180 tabs 4RF Refilled Jardiance (empagliflozin) 25 mg PO QAM 30 tabs 5RF NS E11.29 - Type 2 diabetes mellitus with other diabetic kidney complication, Z79.4 - group home (current) use of insulin blood-glucose sensor (FreeStyle Felicia 3 Sensor device) As directed 1 ea 5RF Diabetes mellitus uncontrolled on insulin E11.29 - Type 2 diabetes mellitus with other diabetic kidney complication, Z79.4 - group home (current) use of insulin Lantus Solostar U-100 Insulin (insulin glargine) 68 units (0.68 mL) subcut QPM 15 mL 5RF NS Discontinued flash glucose scanning reader (FreeStyle Felicia 2 [place]) Discontinued Reason: Patient no longer taking As directed 1 ea 0RF E11.29 - Type 2 diabetes mellitus with other diabetic kidney complication flash glucose sensor (FreeStyle Felicia 14 Day Sensor kit) Discontinued Reason: Doctor's Order As directed-need PCP appt for more refills 2 ea 1RF diabetes mellitus with proteinuria on insulin E11.29 - Type 2 diabetes mellitus with other diabetic kidney complication, Z79.4 - group home (current) use of insulin metformin ER Discontinued Reason: Doctor's Order 500 mg PO QPM 90 tabs 1RF E11.29 - Type 2 diabetes mellitus with other diabetic kidney complication, Z79.4 - steam bone press tender (current) use of insulin Coding Level of Care Code Est Pt Level 4 (78875) Diagnoses Diabetes mellitus with kidney complication, with long-term current use of insulin E11.29; Z79.4 Essential hypertension I10 Dyslipidemia E78.5
[2023-11-08 09:56] VITALS: BP 124/76; PULSE 104; O2SAT 96; BMI 28.8
== END 2023-11-08 10:49 | disposition home or self-care (01) ==
PROVIDERS: PCP Internal Medicine; Visit Provider Internal Medicine
DX: E11.29 Type 2 diabetes mellitus with other diabetic kidney complication (principal); Z79.4 Long term (current) use of insulin; I10 Essential (primary) hypertension; E78.5 Hyperlipidemia, unspecified
CPT/HCPCS: 99214

== ENCOUNTER 2023-11-08 10:51 | Outpatient (REF) | payer OTHER, SELFPAY ==
[2023-11-08 13:38] LABS: Alanine Aminotransferase 28 U/L (0-40); Anion Gap 13 (12-20); Aspartate Amino Transferase 15 U/L (5-37); Blood Urea Nitrogen 25 mg/dL (9-16); Calcium 9.8 mg/dL (8.4-10.2); Carbon Dioxide 25 mmol/L (22-29); Chloride 102 mmol/L (96-108); Cholesterol 222 mg/dL (<200); Estimated Glomerular Filt Rate 57; Glucose Fasting 214 mg/dL (60-99); HDL Cholesterol 42 mg/dL (>40); LDL Cholesterol Calculated 150 mg/dL (<100); Potassium 5.1 mmol/L (3.3-5.1); Sodium 135 mmol/L (135-145); Triglycerides 154 mg/dL (<150)
[2023-11-08 14:01] LABS: Creatinine Urine 57.28 mg/dL; Microalbum/Creatinine Ratio Ur 193.7 ug/mg cr (<30)
== END 2023-11-08 10:52 | disposition home or self-care (01) ==
LOC: HO.HMGCLDS 10:51
PROVIDERS: PCP Internal Medicine; Visit Provider Internal Medicine
DX: E11.29 Type 2 diabetes mellitus with other diabetic kidney complication (principal); I10 Essential (primary) hypertension; E78.5 Hyperlipidemia, unspecified; Z79.4 Long term (current) use of insulin
CPT/HCPCS: 36415; 80048; 80061; 82043; 82570; 84450; 84460

== ENCOUNTER 2024-03-05 12:59 | Outpatient (REF) | payer OTHER, SELFPAY ==
[2024-03-05 16:36] LABS: Alanine Aminotransferase 25 U/L (0-40); Anion Gap 11 (12-20); Aspartate Amino Transferase 16 U/L (5-37); Blood Urea Nitrogen 15 mg/dL (9-16); Calcium 9.4 mg/dL (8.4-10.2); Carbon Dioxide 26 mmol/L (22-29); Chloride 107 mmol/L (96-108); Cholesterol 144 mg/dL (<200); Estimated Glomerular Filt Rate 52; Glucose Fasting 133 mg/dL (60-99); HDL Cholesterol 40 mg/dL (>40); LDL Cholesterol Calculated 88 mg/dL (<100); Potassium 3.9 mmol/L (3.3-5.1); Sodium 140 mmol/L (135-145); Triglycerides 81 mg/dL (<150)
[2024-03-05 16:38] LABS: Estimated Average Glucose 220 mg/dL; Hemoglobin A1c % 9.3 % (<6.0)
== END 2024-03-05 13:00 | disposition home or self-care (01) ==
LOC: HO.HMGCLDS 12:59
PROVIDERS: PCP Internal Medicine; Visit Provider Internal Medicine
DX: E11.29 Type 2 diabetes mellitus with other diabetic kidney complication (principal); I10 Essential (primary) hypertension; E78.5 Hyperlipidemia, unspecified; Z79.4 Long term (current) use of insulin
CPT/HCPCS: 36415; 80048; 80061; 83036; 84450; 84460

== ENCOUNTER 2024-03-07 08:33 | Outpatient (AMB) | payer OTHER, SELFPAY ==
--- NOTE | 2024-03-07 08:45 | MHC.PC.OV ---
Intake Visit Reasons: DM/FMLA I phone [phone] Allergies No Known Allergies Allergy (Verified 03/07/24 09:39) Medication List - Last Reconciled 03/07/24 by Leila Barker MD atorvastatin 10 mg PO DAILY BD Ultra-Fine Camelia Pen Needle (pen needle, diabetic) Use to inject insulin once a day NS blood-glucose sensor (FreeStyle Felicia 3 Sensor device) As directed Jardiance (empagliflozin) 25 mg PO QAM NS Lantus Solostar U-100 Insulin (insulin glargine) 68 units (0.68 mL) subcut QPM NS lisinopril 10 mg PO QAM metformin ER 750 mg PO BID 90 days Tobacco use date assessed: 03/07/24 Dental Screening Dental Screen Date: 11/08/23 HPI DM/FMLA I phone [phone] HPI Details 48 year old male with diabetes mellitus hump hyperlipidemia, hypertension, here today for follow-up . Patient also has been having a lot of anxiety and depressed mood over the last several weeks. His is moving out to [place], not sure for how long to take care of her elderly father who is very sick. Does not know whether he will be moving out to [place] or not . 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 He is willing to do counseling but does not want to start any medications at present time. Diabetes control is starting to improve but still not at goal with a hemoglobin A1c at 9.3% , with presence of microalbuminuria.. His fasting lipids however are within normal limits now currently on atorvastatin 10 mg daily. [facility] Medical History Anxiety and depression Diabetes mellitus with kidney complication, with long-term current use of insulin Essential hypertension Surgical History No pertinent past surgical history Family History Father Diabetes mellitus Mother Diabetes mellitus Maternal Grandfather Diabetes mellitus Maternal Grandmother Diabetes mellitus Paternal Grandfather Diabetes mellitus Paternal Grandmother Diabetes mellitus Maternal Uncle Substance use disorder Mental health disorder Maternal Uncle Substance use disorder Mental health disorder Paternal Uncle Substance use disorder Mental health disorder Paternal Uncle Substance use disorder Mental health disorder Social History Housing: House Alcohol intake: current Alcohol intake frequency: a few times a month Patient Tobacco Use Status: Never used Tobacco e-Cigarette/Vaping Use: Never Used Second Hand Smoke Exposure: No Current occupational status: employed Cognitive needs: No Hearing needs: No Vision needs: No Questionnaire PHQ-9 Over the last 2 weeks, how often have you been bothered by any of the following problems? 1. Little interest or pleasure in doing things: more than half the days 2. Feeling down, depressed, or hopeless: more than half the days 3. Trouble falling or staying asleep, or sleeping too much: more than half the days 4. Feeling tired or having little energy: more than half the days 5. Poor appetite or overeating: more than half the days 6. Feeling bad about yourself - or that you are a failure or have let yourself or your family down: nearly every day 7. Trouble concentrating on things, such as reading the newspaper or watching television: nearly every day 8. Moving or speaking so slowly that other people could have noticed. Or the opposite - being so fidgety or restless that you have been moving around a lot more than usual: not at all 9. Thoughts that you would be better off or of hurting yourself in some way: not at all Total score: 16 Depression Screening Interpretation: Positive (Requesting referral for counseling but does not want to start medication at present time) Depression Screening Follow-up: Community Mental Health Worker F/U Depression Screening Done: Yes 38225 - PHQ-9 Billing: Yes Source: Developed by Drs. Kai Lawson, Dian Alvarez, Umer Castillo and colleagues, with an educational ladonna from [employer]. Thrive Questionnaire Date Thrive assessed: 07/25/23 I am a: Patient Within the past 12 months, did the food you bought not last and you didn't have the money to get more?: Never true Within the past 12 months, did you worry whether your food would run out before you got money to buy more?: Never true Do you have trouble paying for medicines?: No Do you have trouble getting transportation to medical appointments?: No Do you have trouble paying your heating and electricity bill?: No Do you have trouble taking care of your child, family member or friend?: No Do you have trouble with day-to-day activities such as bathing, preparing meals, shopping, managing finances, etc.?: No Are you currently unemployed and looking for a job?: No Are you interested in more education?: No THRIVE Score: 0 AUDIT C Alcohol Use Questionnaire (AUDIT-C) 1. How often do you have a drink containing alcohol?: 2-4 times a month (socially) Total Score: 2 TERESA-7 AMB Questionnaire TERESA-7 Date TERESA - 7 assessed: 03/07/24 Feeling nervous, anxious, or on edge: 3 = Nearly every day Not being able to stop or control worryin = Nearly every day Worrying too much about different things: 2 = More than half the days Trouble relaxin = Not at all Being so restless that it is hard to sit still: 0 = Not at all Becoming easily annoyed or irritable: 1 = Several days Feeling afraid as if something awful might happen: 2 = More than half the days Total TERESA-7 score (0-4 normal; 5-9 mild; 10-14 moderate; 15-21 severe): 11 Source: Developed by Drs. Kai Lawson, Dian Alvarez, Umer Castillo and colleagues, with an educational ladonna from [employer]. TERESA-7 Assessment Billing TERESA-7 Assessment Tool: TERESA-7 Assessment 57552 Review of Systems Const Denies headache(s), Reports lethargy, Reports malaise and Denies weakness Eyes Denies change in vision ENT Denies dizziness, Denies headache(s), Denies nasal congestion and Denies disequilibrium Card Denies chest pain, Denies lightheadedness and Denies dyspnea Resp Denies chest congestion, Denies cough, Denies dyspnea and Denies wheezing GI Denies abdominal pain, Denies change in bowel habits and Denies heartburn Denies hematuria, Denies difficulty urinating, Denies dysuria and Reports urinary frequency Musc Denies arthralgias, Denies joint swelling and Denies tingling Skin/Breast Denies lesions Neuro Denies dizziness, Denies headache(s), Denies tingling, Denies disequilibrium and Denies weakness Psych Reports as per HPI Endo Reports polydipsia and Reports polyuria Demar/Lymph Denies easy bruising Aller/Immun Denies seasonal rhinorrhea and Denies wheezing Physical exam (Primary Care) Tobacco/Smoking Status: Tobacco use Status Tobacco use date assessed 03/07/24 03/07/24 08:46 Patient Tobacco Use Status Never used Tobacco 03/07/24 08:46 e-Cigarette/Vaping Use Never Used 03/07/24 08:46 Depression Screening Interpretation: Positive (Requesting referral for counseling but does not want to start medication at present time) Depression Screening Follow-up: Community Mental Health Worker F/U Thrive Assessment: Date of Thrive Assessment Date Thrive assessed 07/25/23 03/07/24 08:46 Telehealth Telehealth Telehealth Platform: [employer] Location of provider rendering services: practice address Location of patient: address on file Patient Identification confirmed using: Name, : Yes Telehealth method: video Patient verbally consented to treatment: Yes Patient verbally consented to billing insurance company: Yes Patient informed of any privacy concerns related to visit: Yes Minutes spent on Phone/Video with Pt.: 25 Results Reviewed Results Reviewed: Laboratory Tests 06/13/23 07/23/23 11/08/23 14:19 08:54 10:18 Fasting Glucose 139 H Estimat Average Glucose Hgb A1c (Clinic) 11.8 H 10.7 H Hemoglobin A1c % Triglycerides Cholesterol LDL Cholesterol, Calc HDL Cholesterol Urine Creatinine Urine Microalbumin Microalb/Creat Ratio 11/08/23 11/08/23 03/05/24 10:53 10:57 13:05 Fasting Glucose 214 H Estimat Average Glucose 220 Hgb A1c (Clinic) Hemoglobin A1c % 9.3 H Triglycerides 154 H Cholesterol 222 H LDL Cholesterol, Calc 150 H HDL Cholesterol 42 Urine Creatinine 57.28 Urine Microalbumin 111.0 Microalb/Creat Ratio 193.7 H Name: Blayne Loredo Age/Sex: 48/M : 1975 Unit#: [id number] Attend Dr: Leila Barker MD Re03/05/24 Status: DEP REF Location: [facility] Disch: SPEC : [id number] MELLISSA: 03/05/24-5 STATUS: COMP REQ : [id number] RECD: 03/05/24-[address]: Leila Barker MD COMP: 03/05/24-1636 ENTERED: 03/05/24-[address] [facility] [address]: ORDERED: Met Prof Fast, AST, ALT, Lipid Panel Test Result Flag Reference Sodium 140 135-145 mmol/L Potassium 3.9 # 3.3-5.1 mmol/L CL 107 96-108 mmol/L CO2 26 22-29 mmol/L Gap 11 L 12-20 BUN 15 9-16 mg/dL Creat 1.46 H 0.5-1.4 mg/dL EGFR 52 NOTE: For -Luxembourger individuals, multiply the result by 1.210. Chronic Kidney Disease: Estimated GFR < 60 mL/min/1.73m2 Severe Kidney Disease: Estimated GFR < 15 mL/min/1.73m2 FBS 133 H 60-99 mg/dL A fasting glucose of 126 mg/dl or greater on more than one occasion is considered diagnostic of diabetes. CA 9.4 8.4-10.2 mg/dL AST (GOT) 16 5-37 U/L ALT (GPT) 25 0-40 U/L Triglyceride 81 <150 mg/dL Desirable Triglyceride: less than 150 mg/dL Borderline High Triglyceride 150-199 mg/dL High Triglyceride: 200-499 mg/dL Very High Triglyceride: greater than or equal to 5OO mg/dL Cholesterol 144 <200 mg/dL Desirable Cholesterol: less than 200 mg/dL Borderline High Cholesterol: 200-239 mg/dL High Cholesterol: greater than 239 mg/dL LDL Calculated 88 <100 mg/dL Desirable LDL: less than 100 mg/dL Near Optimal/Above Optimal LDL: 110-129 mg/dL Borderline High LDL: 130-159 mg/dL High LDL: 160-189 mg/dL Very High LDL: greater than or equal to 190 mg/dL HDL 40 L >40 mg/dL Desirable HDL: greater than 40 mg/dL Note: This HDL assay may give artificially low results in patients with liver disease. Assessment and Plan Assessment & Plan (1) Anxiety and depression: Code(s): F41.9 - Anxiety disorder, unspecified; F32.A - Depression, unspecified Plan: Patient does not want to start any medication present time, but would like referral for counseling. Referred to Lety , our mental health coordinator, for assistance in getting in to be seen for therapy. Will see him back for follow-up in 06/2024 or sooner as needed. FMLA form completed today, patient to brick picker on Sunday03/10/2024 (2) Diabetes mellitus with kidney complication, with long-term current use of insulin: Code(s): E11.29 - Type 2 diabetes mellitus with other diabetic kidney complication; Z79.4 - terminal system operator (current) use of insulin Qualifiers: Diabetes mellitus type: type 2 Diabetes mellitus complication detail: with diabetic microalbuminuria Qualified Code(s): E11.29 - Type 2 diabetes mellitus with other diabetic kidney complication; R80.9 - Proteinuria, unspecified; Z79.4 - terminal system operator (current) use of insulin Plan: Hemoglobin A1c now is at 9.3%, will continue on Jardiance, same dose of Lantus and increase dose of metformin ER 750 mg to take 1 tablet twice a day with food. So compliance with taking medications stressed. Reinforced importance of following recommended diet and getting regular exercise. Reminded to get his yearly diabetes retinopathy screening. Will see him back for follow-up in 06/2024 after fasting labs done (3) Dyslipidemia: Code(s): E78.5 - Hyperlipidemia, unspecified Plan: Reviewed recent fasting lipid profile with patient with levels within normal limits . Continue atorvastatin 10 mg daily , in addition to adherence to low-cholesterol diet and regular exercise, at least 30 minutes 3 to 4 times a week. Advised patient to make healthy food choices, eat more fruits, vegetables, whole grains, wild caught fish and low-fat dairy. Limit amount of meat and fried or fatty food products, as well as processed foods and fast foods. Follow-up scheduled with repeat fasting lipid panel in 3 months. Medications: Refilled lisinopril 10 mg PO QAM 90 tabs 4RF Jardiance (empagliflozin) 25 mg PO QAM 30 tabs 5RF NS E11.29 - Type 2 diabetes mellitus with other diabetic kidney complication, Z79.4 - senior care (current) use of insulin Coding Level of Care Code Tele Est Pt Level 4 (49839) Diagnoses Anxiety and depression F41.9; F32.A Type 2 diabetes mellitus with diabetic microalbuminuria, with long-term current use of insulin E11.29; R80.9; Z79.4 Diabetes mellitus type: type 2 Diabetes mellitus complication detail: with diabetic microalbuminuria Dyslipidemia E78.5 Additional Codes TERESA-7 Assessment Billing - TERESA-7 Assessment Tool: TERESA-7 Assessment [id number] ([id number])
== END 2024-03-07 10:29 | disposition home or self-care (01) ==
PROVIDERS: PCP Internal Medicine; Visit Provider Internal Medicine
DX: E11.29 Type 2 diabetes mellitus with other diabetic kidney complication (principal); Z79.4 Long term (current) use of insulin; F41.9 Anxiety disorder, unspecified; F32.A Depression, unspecified; R80.9 Proteinuria, unspecified; E78.5 Hyperlipidemia, unspecified
CPT/HCPCS: 99214

== ENCOUNTER 2024-04-22 16:04 | Outpatient (AMB) | payer OTHER, SELFPAY ==
--- NOTE | 2024-04-22 16:06 | MHC.OFFVIS ---
Vital Signs 04/22/24 16:09 Height 5 ft 8 in Weight 190 lb 11.198 oz BMI 29.0 BP 114/76 Blood Pressure Location Rt brachial Position Sitting Pulse 76 Pulse Source Pulse Oximeter Intake Visit Reasons: DM/CONFIRMED Intake Note: New Patient presents today to establish treatment on Diabetes Mellitus Last Diabetic Eye exam: DUE, 2-3 years Last Podiatry Exam: Does not see a Bearing Grinder Most recent HbA1c: 9.3%, 03/05/2024 Random Glucose- 174 mg/dL, Today Title One Reading Teacher Required: No Accompanied by: Self / Same As Patient Allergies No Known Allergies Allergy (Verified 04/22/24 16:09) HPI Comments Details: This is a 48-year-old male with a past medical history of type 2 diabetes, hypertension, dyslipidemia and anxiety with depression presenting for diabetic management. This is his 1st consult with the endocrinology department. Diagnosed age [age] years old. He has a very strong family history of type II diabetes. He is moving to [place] in a few months. He purchased a home there. He had [employer] felicia 3, but he hasn't had it for a month. He does not have a fingerstick glucometer. Hemoglobin a1c 9.3% 03/11/2024. POC 174 today. Current medication regimen: Metformin extended release 750 mg twice daily, Jardiance 25 mg daily, Lantus 68 units at bedtime. Metformin was increased after his A1c review with his primary care provider in March. Compliance issues: Taking Metformin and Lantus. He has not taken Jardiance for a month or month and a half because he brought it to [place]. He has a refill at the pharmacy to [facility] picker on Sunday, but he does not really wish to restart it. He has urinary frequency with this medication. It stopped after he stopped taking it. Diet: seen by tallow maker and found this beneficial Breakfast-he does not usually have breakfast Lunch- wrap, sandwiches Dinner-cooks or takeout, rice, fish, quinoa and lentils Snacks/desserts: cheetos, occasional ice cream or carrot cake but does not really like sweets Nonsmoker He drinks alcohol rarely. Hypoglycemia symptoms: He fell a month ago when he was working all day and did not eat. He felt shaky and had a headache. He drinks soda and felt better. Hyperglycemia symptoms: infrequent polyuria/polydipsia and/or blurry vision Eye exam: Yuki eyezgigy, overdue and he will schedule an appointment. Microvascular complications: neuropathy mild on right foot, nephropathy (CKD stage IIIA by labs, microalbumin), no known retinopathy Macrovascular complications: None Hypertension: treated with lisinopril 10 mg. Hyperlipidemia: treated with atorvastatin 10 mg. LDL at goal <100. He is bothered by the appearance of his toenails. They are thickened and got caught on things sometimes. He also has a rash on his feet. He was told it was fungal, but he would like to see Podiatry to confirm this and discuss treatment. ROS: Constitutional: No unexplained weight loss, fever, chills, fatigue or night sweats. Eyes: No vision changes Respiratory: No shortness of breath, cough or sputum production. Cardiovascular: No chest pain, chest pressure or chest discomfort. No palpitations or pedal edema. Gastrointestinal: No anorexia, nausea, vomiting or diarrhea. No abdominal pain or blood in stool. Genitourinary: No dysuria, hematuria, urinary frequency. Neurologic: No headache, dizziness, syncope Physical exam: Constitutional: Alert, in no distress. Eyes: Pupils are equal, round and reactive to light. Extraocular muscles intact. Neck: Supple, Full range of motion. No lymphadenopathy. No palpable thyroid masses. Respiratory: Clear to auscultation. Cardiovascular: S1 S2 regular. No murmurs. Feet: Deformity, discoloration and thickening of the toenails bilaterally. Dry scaly rash on the plantar surfaces of the feet. Right foot: Warm and well perfused. No clubbing, cyanosis or edema. DP pulse 3+. Decreased vibratory sensation, mild, only in the great toe. Intact sensation to monofilament. Left foot: Warm and well perfused. No clubbing, cyanosis or edema. DP pulse 3+. Intact vibratory sensation. Intact sensation to monofilament. [facility] Medical History (Updated 04/22/24 @ 16:54 by ROBSON Floyd) Onychomycosis Microalbuminuria Type 2 diabetes mellitus with renal complication Anxiety and depression Diabetes mellitus with kidney complication, with long-term current use of insulin Essential hypertension Surgical History (Updated 04/22/24 @ 16:10 by Vanessa Moraes Jael) History of surgery No pertinent past surgical history Family History Father Diabetes mellitus Mother Diabetes mellitus Maternal Grandfather Diabetes mellitus Maternal Grandmother Diabetes mellitus Paternal Grandfather Diabetes mellitus Paternal Grandmother Diabetes mellitus Maternal Uncle Substance use disorder Mental health disorder Maternal Uncle Substance use disorder Mental health disorder Paternal Uncle Substance use disorder Mental health disorder Paternal Uncle Substance use disorder Mental health disorder Social History Housing: House Alcohol intake: current Alcohol intake frequency: a few times a month Patient Tobacco Use Status: Never used Tobacco e-Cigarette/Vaping Use: Never Used Second Hand Smoke Exposure: No Current occupational status: employed Cognitive needs: No Hearing needs: No Vision needs: No Results Reviewed Results Reviewed: Laboratory Tests 11/08/23 03/05/24 10:57 13:05 Creatinine 1.46 H Estimated GFR 52 Fasting Glucose 133 H Hemoglobin A1c % 9.3 H AST 16 ALT 25 Triglycerides 81 Cholesterol 144 LDL Cholesterol, Calc 88 HDL Cholesterol 40 L Urine Creatinine 57.28 Urine Microalbumin 111.0 Microalb/Creat Ratio 193.7 H Assessment & Plan Assessment & Plan (1) Type 2 diabetes mellitus with renal complication: Code(s): E11.29 - Type 2 diabetes mellitus with other diabetic kidney complication Category: Medical Qualifiers: Diabetes mellitus assisted insulin use: with assisted use Diabetes mellitus complication detail: with diabetic microalbuminuria Qualified Code(s): E11.29 - Type 2 diabetes mellitus with other diabetic kidney complication; R80.9 - Proteinuria, unspecified; Z79.4 - intermediate (current) use of insulin Plan: In summary this is a 48-year-old male with poorly controlled type 2 diabetes. He would like to remain off Jardiance because he experiences urinary frequency with this medication. Continue Lantus 68 units nightly. Continue metformin extended release 750 mg twice daily. Discuss trial of Ozempic for diabetes and cardiovascular risk reduction. He would like to try it. He denies contraindications to it. Discussed common side effects. He will contact the office if he has any issues with that. Patient says he has refills for sensors waiting at the pharmacy. He will get back on [employer] Felicia 3 and have a short-term follow-up in 4-6 weeks to review CGM data. I also sent him a freestyle Lite meter and supplies. Reviewed treatment of hypoglycemia/hyperglycemia with the patient. He will schedule his diabetic eye exam. (2) Dyslipidemia: Code(s): E78.5 - Hyperlipidemia, unspecified Category: Medical Plan: Controlled. Continue statin. Lifestyle modifications reviewed. (3) Essential hypertension: Code(s): I10 - Essential (primary) hypertension Category: Medical Plan: Controlled. Continue lisinopril. Low-sodium diet and avoidance of caffeine recommended. (4) Onychomycosis: Code(s): B35.1 - Tinea unguium Category: Medical Plan: Refer to podiatry. Medications: New blood-glucose meter (FreeStyle Lite Meter kit) Use to monitor glucose up to five times daily for diabetes 1 ea 0RF E11.9 - Type 2 diabetes mellitus without complications lancets (FreeStyle Lancets) Use as directed to monitor glucose up to 5 times daily 200 ea 5RF semaglutide (Ozempic) for 4 weeks 0.25 mg (0.368 mL) subcut QWEEK 3 mL 0RF blood sugar diagnostic (FreeStyle Lite Strips) As directed to check glucose up to 5 times daily 200 ea 5RF Discontinued Jardiance (empagliflozin) Discontinued Reason: Doctor's Order 25 mg PO QAM 30 tabs 5RF NS E11.29 - Type 2 diabetes mellitus with other diabetic kidney complication, Z79.4 - exterminator helper termite (current) use of insulin Coding Level of Care Code New Pt Level 4 (77990) Complex EM visit Add On G2211 Diagnoses Type 2 diabetes mellitus with diabetic microalbuminuria, with long-term current use of insulin E11.29; R80.9; Z79.4 Diabetes mellitus long wall shear operator insulin use: with assisted use Diabetes mellitus complication detail: with diabetic microalbuminuria Dyslipidemia E78.5 Essential hypertension I10 Onychomycosis B35.1
[2024-04-22 16:09] VITALS: BP 114/76; PULSE 76; BMI 29.0
[2024-04-22 16:20] LABS: Glucose, Whole Blood 174 mg/dL (60-115)
== END 2024-04-22 16:47 | disposition home or self-care (01) ==
PROVIDERS: PCP Internal Medicine; Visit Provider Physician Assistant Medical
DX: E11.29 Type 2 diabetes mellitus with other diabetic kidney complication (principal); R80.9 Proteinuria, unspecified; Z79.4 Long term (current) use of insulin; E78.5 Hyperlipidemia, unspecified; I10 Essential (primary) hypertension; B35.1 Tinea unguium
CPT/HCPCS: 99204

== ENCOUNTER → 2024-04-22 16:04 | Outpatient (BNVA) | payer OTHER, SELFPAY | PROVIDERS: PCP Internal Medicine; Visit Provider Physician Assistant Medical | DX: E11.29 Type 2 diabetes mellitus with other diabetic kidney complication (principal); R80.9 Proteinuria, unspecified; E78.5 Hyperlipidemia, unspecified; I10 Essential (primary) hypertension; B35.1 Tinea unguium; Z79.4 Long term (current) use of insulin; Z79.899 Other long term (current) drug therapy | CPT/HCPCS: 82947 ==

== ENCOUNTER 2024-06-23 12:35 | Outpatient (AMB) | payer OTHER, SELFPAY ==
--- NOTE | 2024-06-23 12:39 | MHC.PC.OV ---
Vital Signs 06/23/24 12:40 Height 5 ft 8 in Weight 178 lb BMI 27.1 BP 112/78 Blood Pressure Location Lt brachial Position Sitting Pulse 102 H Pulse Source Pulse Oximeter Pulse Oximetry (%) 95 Oxygen Delivery Method Room Air Intake Visit Reasons: Annual PE Intake Note: Pt is here today for his PE Allergies No Known Allergies Allergy (Verified 06/23/24 13:05) Medication List - Last Reconciled 06/23/24 by Leila Barker MD atorvastatin 10 mg PO DAILY BD Ultra-Fine Camelia Pen Needle (pen needle, diabetic) Use to inject insulin once a day NS blood sugar diagnostic (FreeStyle Lite Strips) As directed to check glucose up to 5 times daily blood-glucose meter (FreeStyle Lite Meter kit) Use to monitor glucose up to five times daily for diabetes blood-glucose sensor (FreeStyle Felicia 3 Sensor device) As directed lancets (FreeStyle Lancets) Use as directed to monitor glucose up to 5 times daily lisinopril 10 mg PO QAM metformin ER 750 mg PO BID 90 days Tobacco use date assessed: 06/23/24 Dental Screening Dental Screen Date: 06/23/24 Did you have a dental visit in the last 12 months?: No Did you have a dental problem in the last 6 months where you did not have access to dental care?: No Was dental information given to patient?: Patient declined HPI Annual PE HPI Details 48 year old male with diabetes mellitus , hyperlipidemia, depression with anxiety, hypertension, here today for follow-up. Patient has not been taking his medicines regularly, and has been noncompliant with diet. 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 Patient clinically forgets to take his medications, and just grabs meals undergo. He is currently applying for leave of absence at work for mental health reasons and to get his multiple medical problems under control. [facility] Medical History (Updated 06/29/24 @ 19:12 by Leila Barker MD) Onychomycosis Microalbuminuria Type 2 diabetes mellitus with renal complication Anxiety and depression Diabetes mellitus with kidney complication, with long-term current use of insulin Essential hypertension Surgical History History of surgery No pertinent past surgical history Family History Father Diabetes mellitus Mother Diabetes mellitus Maternal Grandfather Diabetes mellitus Maternal Grandmother Diabetes mellitus Paternal Grandfather Diabetes mellitus Paternal Grandmother Diabetes mellitus Maternal Uncle Substance use disorder Mental health disorder Maternal Uncle Substance use disorder Mental health disorder Paternal Uncle Substance use disorder Mental health disorder Paternal Uncle Substance use disorder Mental health disorder Social History Housing: House Alcohol intake: current Alcohol intake frequency: a few times a month Patient Tobacco Use Status: Never used Tobacco e-Cigarette/Vaping Use: Never Used Second Hand Smoke Exposure: No Current occupational status: employed Cognitive needs: No Hearing needs: No Vision needs: No Questionnaire PHQ-9 Over the last 2 weeks, how often have you been bothered by any of the following problems? 1. Little interest or pleasure in doing things: more than half the days 2. Feeling down, depressed, or hopeless: more than half the days 3. Trouble falling or staying asleep, or sleeping too much: more than half the days 4. Feeling tired or having little energy: nearly every day 5. Poor appetite or overeating: several days 6. Feeling bad about yourself - or that you are a failure or have let yourself or your family down: several days 7. Trouble concentrating on things, such as reading the newspaper or watching television: several days 8. Moving or speaking so slowly that other people could have noticed. Or the opposite - being so fidgety or restless that you have been moving around a lot more than usual: not at all 9. Thoughts that you would be better off or of hurting yourself in some way: not at all Total score: 12 Depression Screening Interpretation: Positive Depression Screening Follow-up: Existing condition, In treatment and New Medication prescribed (Declines medication at this time) Depression Screening Done: Yes 28904 - PHQ-9 Billing: Yes Source: Developed by Drs. Kai Lawson, Dian Alvarez, Umer Castillo and colleagues, with an educational ladonna from [employer]. Thrive Questionnaire Date Thrive assessed: 07/25/23 I am a: Patient What is your living situation today?: I have a steady place to live Within the past 12 months, did the food you bought not last and you didn't have the money to get more?: Sometimes True Within the past 12 months, did you worry whether your food would run out before you got money to buy more?: Never true Do you have trouble paying for medicines?: Yes Do you have trouble getting transportation to medical appointments?: No Do you have trouble paying your heating and electricity bill?: Yes Do you have trouble taking care of your child, family member or friend?: No Do you have trouble with day-to-day activities such as bathing, preparing meals, shopping, managing finances, etc.?: No Are you currently unemployed and looking for a job?: No Are you interested in more education?: Yes Please select the resources that you would like help with: Paying for medicine, Job search/training and Education Currently or been in a relationship where the following occur: No concerns reported THRIVE Score: 2 AUDIT C Alcohol Use Questionnaire (AUDIT-C) 1. How often do you have a drink containing alcohol?: 2-4 times a month 2. How many drinks containing alcohol do you have on a typical day when you are drinking?: 1 or 2 3. How often do you have six or more drinks on one occasion?: Never Total Score: 2 TERESA-7 AMB Questionnaire TERESA-7 Date TERESA - 7 assessed: 03/07/24 Feeling nervous, anxious, or on edge: 3 = Nearly every day Not being able to stop or control worryin = Nearly every day Worrying too much about different things: 3 = Nearly every day Trouble relaxin = Nearly every day Being so restless that it is hard to sit still: 1 = Several days Becoming easily annoyed or irritable: 1 = Several days Feeling afraid as if something awful might happen: 2 = More than half the days Total TERESA-7 score (0-4 normal; 5-9 mild; 10-14 moderate; 15-21 severe): 16 Source: Developed by Drs. Kai Lawson, Dian Alvarez, Umer Castillo and colleagues, with an educational ladonna from [employer] TERESA-7 Assessment Billing TERESA-7 Assessment Tool: TERESA-7 Assessment 23255 Review of Systems Const Denies headache(s), Reports lethargy, Reports malaise and Denies weakness Eyes Denies change in vision ENT Denies dizziness, Denies headache(s), Denies nasal congestion and Denies disequilibrium Card Denies chest pain, Denies lightheadedness and Denies dyspnea Resp Denies chest congestion, Denies cough, Denies dyspnea and Denies wheezing GI Denies abdominal pain, Denies change in bowel habits and Denies heartburn Denies hematuria, Denies difficulty urinating, Denies dysuria and Reports urinary frequency Musc Denies arthralgias, Denies joint swelling and Denies tingling Skin/Breast Denies lesions Neuro Denies dizziness, Denies headache(s), Denies tingling, Denies disequilibrium and Denies weakness Psych Reports as per HPI Endo Reports polydipsia and Reports polyuria Demar/Lymph Denies easy bruising Aller/Immun Denies seasonal rhinorrhea and Denies wheezing Physical exam (Primary Care) Vital Signs: Last Vital Signs Pulse 102 H 06/23/24 12:40 BP 112/78 06/23/24 12:40 Pulse Ox 95 06/23/24 12:40 Oxygen Delivery Method Room Air 06/23/24 12:40 BMI result Body Mass Index 27.1 Tobacco/Smoking Status: Tobacco use Status Tobacco use date assessed 06/23/24 06/23/24 12:43 Patient Tobacco Use Status Never used Tobacco 06/23/24 12:40 e-Cigarette/Vaping Use Never Used 06/23/24 12:40 PHQ-9: PHQ-9 Score PHQ-9: Total score 12 06/29/24 19:12 Depression Screening Interpretation: Positive Depression Screening Follow-up: Existing condition, In treatment and New Medication prescribed (Declines medication at this time) Thrive Assessment: Date of Thrive Assessment Date Thrive assessed 07/25/23 06/23/24 12:40 Currently or been in a relationship where the following occur: No concerns reported Const General: cooperative, comfortable and no acute distress Orientation/consciousness: patient oriented x3 HENMT Head: Yes normocephalic Ears: external ears normal, TM's normal bilaterally and EAC's normal Mouth: Normal oral and palatal mucosa present, oropharynx normal and moist mucous membranes Eyes General: appearance normal, both eyes and all related structures Conjunctivae: conjunctivae normal Pupils: Equal, round and reactive pupils present EOM: EOMs intact bilaterally Neck Neck: Yes full ROM, Yes no lymphadenopathy and Yes supple Resp Effort & Inspection: normal respiratory effort and able to speak in complete sentences Auscultation: clear to auscultation bilaterally Cardio Rate: regular rate Rhythm: regular rhythm Heart sounds: S1 normal heart sound present and S2 normal heart sound present GI Inspection: Yes normal to inspection Palpation (GI): Soft to palpation, nontender and no masses Auscultation: normal bowel sounds General: Yes no CVA tenderness Male General Exam: Yes normal external exam Back/Spine/Pelvis Back: no CVA tenderness Skin General skin exam: no rashes or lesions noted Neuro General: patient oriented x3, gait normal, tone normal, moves all extremities, Normal light touch and pain sensation and no focal motor deficits Cranial nerves: Yes Equal, round and reactive pupils present Cognition (Neuro): normal cognition Gait exam (Neuro): Normal gait present Motor exam (neuro): 5/5 motor strength present throughout Extrem General: Yes normal to inspection, Yes full ROM, Yes no joint enlargement, Yes no clubbing, cyanosis or edema, Yes no pedal edema, Yes no calf tenderness and Yes normal gait Psych Appearance: grossly normal and well kempt Mental Status: mental status grossly normal Speech and movement: Normal speech and movement present Affect: normal affect Attitude: cooperative Office Procedures Flu Questionnaire Does the patient have a severe egg allergy?: No Does the patient have severe life threatening allergies?: No Does the patient have a fever or illness today?: No Has the patient ever had Guillain-Clementon Syndrome?: No Has the patient ever had any past reaction to a flu shot?: No Results AMB Hemoglobin A1c AMB Hemoglobin A1c 12.1 % Last Edit by Yesenia Ghotra CMA on 06/23/24 13:03 Immunizations Fluarix Triv 5826-1405 (PF) 45 mcg (15 mcg x 3)/0.5 mL IM syringe Performing Provider: Leila Barker MD Performing Location: [facility] [place] [facility] Administered by: Yesenia Ghotra CMA on 06/23/24 13:00 Dose Route Admin Location Dispensed Lot Number Expiration Date NDC [place] 0.5 mL IM Left Deltoid 0.5 mL [id number] 03/02/25 [id number] [employer] VIS Given Date VIS Provided VIS Publication Date 06/23/24 Single Vaccine 21 Eligibility Eligibility Date Funding Source Not [facility] Eligible 06/23/24 Private Results Reviewed Results Reviewed: Laboratory Last Values Hgb A1c (Clinic) 12.1 % (4.0-6.0) H 06/23/24 12:51 Laboratory Tests 03/05/24 06/23/24 13:05 12:51 Estimat Average Glucose 220 Hgb A1c (Clinic) 12.1 H Hemoglobin A1c % 9.3 H Coding Level of Care Code Est Pt Prev Care 40-64y(89739) Diagnoses Annual visit for general adult medical examination with abnormal findings Z00.01 Type 2 diabetes mellitus with diabetic microalbuminuria, with long-term current use of insulin E11.29; R80.9; Z79.4 Diabetes mellitus complication detail: with diabetic microalbuminuria 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 Recommended dental visit every 6 months and regular eye exams, at least every 2 years. Instructed to do self-cigarette check exam to check for any mass. flu vaccine given today, up-to-date with her pneumococcal vaccine, and Tdap. Reminded to get COVID booster (2) Type 2 diabetes mellitus with renal complication: Code(s): E11.29 - Type 2 diabetes mellitus with other diabetic kidney complication Category: Medical Qualifiers: Diabetes mellitus complication detail: with diabetic microalbuminuria Diabetes mellitus intermediate insulin use: with termite control service representative use Qualified Code(s): E11.29 - Type 2 diabetes mellitus with other diabetic kidney complication; R80.9 - Proteinuria, unspecified; Z79.4 - termite control service representative (current) use of insulin Plan: Recent lab results reviewed with patient, with sugar and hemoglobin A1c not at goal . Stressed importance of taking medicines as directed, continue metformin 750 mg 1 tablet twice a day with meals, better compliance again recommended. continue to check fasting blood sugar at home, maintain log and bring to next appointment for review. Reinforced diabetic diet and regular exercise with patient. Counseled regarding importance of yearly diabetes retinopathy screening. Patient advised to inspect feet daily, for any signs of injury, callus or infection. Compliance with diet and regular exercise again stressed. Blood pressure goal is less than 130/80, goal LDL is less than 100 and goal hemoglobin A1c is less than 7% follow-up appointment made in-3--months. Due for his initial screening colonoscopy, but patient declined at this time. Reminded patient to get his fasting labs done, already ordered (3) Essential hypertension: Code(s): I10 - Essential (primary) hypertension Category: Medical Plan: Blood pressure at goal of less than 130/80. Continue lisinopril 10 mg daily. Reminded to get fasting labs done. Reinforced importance of following a low sodium diet, getting regular exercise, and lowering stress levels. (4) Dyslipidemia: Code(s): E78.5 - Hyperlipidemia, unspecified Category: Medical Plan: Currently on atorvastatin 10 mg daily, reinforced importance of following a low-cholesterol diet and getting regular exercise. Again reminded to get fasting labs done. (5) Anxiety and depression: Code(s): F41.9 - Anxiety disorder, unspecified; F32.A - Depression, unspecified Category: Medical Plan: Patient declines starting medications at present time, will seek counseling. FMLA completed. Orders: Orders AMB Hemoglobin A1c 06/23/24 Z13.9 - Encounter for screening, unspecified Influenza [id number] Immunization 06/23/24 Z23 - Encounter for immunization
[2024-06-23 12:40] VITALS: BP 112/78; PULSE 102; O2SAT 95; BMI 27.1
== END 2024-06-23 13:36 | disposition home or self-care (01) ==
PROVIDERS: PCP Internal Medicine; Visit Provider Internal Medicine
DX: Z00.01 Encounter for general adult medical examination with abnormal findings (principal); E11.29 Type 2 diabetes mellitus with other diabetic kidney complication; R80.9 Proteinuria, unspecified; Z79.4 Long term (current) use of insulin; I10 Essential (primary) hypertension; E78.5 Hyperlipidemia, unspecified; F41.9 Anxiety disorder, unspecified; F32.A Depression, unspecified

== ENCOUNTER → 2024-06-23 12:35 | Outpatient (BNVA) | payer OTHER, SELFPAY | PROVIDERS: PCP Internal Medicine; Visit Provider Internal Medicine | DX: Z00.01 Encounter for general adult medical examination with abnormal findings (principal); E11.29 Type 2 diabetes mellitus with other diabetic kidney complication; R80.9 Proteinuria, unspecified; I10 Essential (primary) hypertension; E78.5 Hyperlipidemia, unspecified; F41.9 Anxiety disorder, unspecified; F32.A Depression, unspecified; Z79.4 Long term (current) use of insulin; Z79.899 Other long term (current) drug therapy; Z23 Encounter for immunization | CPT/HCPCS: 83036; 90471; 90656; 96127 ==

== ENCOUNTER 2024-08-22 09:19 | Outpatient (AMB) | payer OTHER, SELFPAY ==
--- NOTE | 2024-08-22 09:14 | MHC.PC.OV ---
Intake Visit Reasons: FMLA and med review Allergies No Known Allergies Allergy (Verified 08/22/24 09:29) Medication List - Last Reconciled 08/22/24 by Leila Barker MD BD Ultra-Fine Camelia Pen Needle (pen needle, diabetic) Use to inject insulin once a day NS blood sugar diagnostic (FreeStyle Lite Strips) As directed to check glucose up to 5 times daily blood-glucose meter (FreeStyle Lite Meter kit) Use to monitor glucose up to five times daily for diabetes blood-glucose sensor (FreeStyle Felicia 3 Sensor device) As directed insulin glargine (Lantus Solostar U-100 Insulin) 68 units subcut BID lancets (FreeStyle Lancets) Use as directed to monitor glucose up to 5 times daily lisinopril 10 mg PO QAM metformin ER 750 mg PO BID 90 days semaglutide (Ozempic) 2 mg subcut QWEEK Tobacco use date assessed: 08/22/24 Dental Screening Dental Screen Date: 08/22/24 Did you have a dental visit in the last 12 months?: No Did you have a dental problem in the last 6 months where you did not have access to dental care?: No Was dental information given to patient?: Patient declined HPI FMLA and med review HPI Details - telehealth visit made with 48-year-old male with past medical history significant for Type 2 Diabetes Mellitus , depression with anxiety and hypertension, here today for follow-up and requesting an FMLA application to be completed. 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 Depression has been compounded with recent loss of [id number] , and would like to have his Family and Medical Leave Act (FMLA) extended from September 05 for another 12 weeks, ending 12/04/2024. He is engaged in weekly therapy sessions at [facility]. No pharmacotherapy for depression at this time. -he has poorly controlled diabetes mellitus with last hemoglobin A1c at 12.1% in June during his last visit with me . He still has not made a follow-up appointment with his pen rider at [facility]. He states that he has been compliant with taking his metformin 750 mg twice daily, and semaglutide (Ozempic) 2 mg once weekly, and taking 68 units of Lantus at night. - Hypertension controlled with lisinopril. No current cholesterol medication, although future consideration advised due to diabetic status. - Neurological and retinal health monitored; the patient is awaiting an upcoming appointment at [facility] Medical History (Updated 08/22/24 @ 09:41 by Leila Barker MD) Diabetes mellitus with microalbuminuria, with long-term current use of insulin Onychomycosis Anxiety and depression Diabetes mellitus with kidney complication, with long-term current use of insulin Essential hypertension Surgical History History of surgery No pertinent past surgical history Family History Father Diabetes mellitus Mother Diabetes mellitus Maternal Grandfather Diabetes mellitus Maternal Grandmother Diabetes mellitus Paternal Grandfather Diabetes mellitus Paternal Grandmother Diabetes mellitus Maternal Uncle Substance use disorder Mental health disorder Maternal Uncle Substance use disorder Mental health disorder Paternal Uncle Substance use disorder Mental health disorder Paternal Uncle Substance use disorder Mental health disorder Social History Housing: House Alcohol intake: current Alcohol intake frequency: a few times a month Patient Tobacco Use Status: Never used Tobacco e-Cigarette/Vaping Use: Never Used Second Hand Smoke Exposure: No Current occupational status: employed Cognitive needs: No Hearing needs: No Vision needs: No Questionnaire PHQ-9 Over the last 2 weeks, how often have you been bothered by any of the following problems? 1. Little interest or pleasure in doing things: not at all 2. Feeling down, depressed, or hopeless: several days 3. Trouble falling or staying asleep, or sleeping too much: several days 4. Feeling tired or having little energy: several days 5. Poor appetite or overeating: not at all 6. Feeling bad about yourself - or that you are a failure or have let yourself or your family down: several days 7. Trouble concentrating on things, such as reading the newspaper or watching television: several days 8. Moving or speaking so slowly that other people could have noticed. Or the opposite - being so fidgety or restless that you have been moving around a lot more than usual: not at all 9. Thoughts that you would be better off or of hurting yourself in some way: not at all Total score: 5 Depression Screening Interpretation: Positive Depression Screening Follow-up: Existing condition, In treatment (Goes to [facility] in counseling in [place], getting weekly therapy sessions) and Community Mental Health Worker F/U Depression Screening Done: Yes 20186 - PHQ-9 Billing: Yes Source: Developed by Drs. Kai Lawson, Dian Alvarez, Umer Castillo and colleagues, with an educational ladonna from [employer]. Thrive Questionnaire Date Thrive assessed: 08/22/24 I am a: Patient What is your living situation today?: I have a steady place to live Within the past 12 months, did the food you bought not last and you didn't have the money to get more?: Sometimes True Within the past 12 months, did you worry whether your food would run out before you got money to buy more?: Never true Do you have trouble paying for medicines?: Yes Do you have trouble getting transportation to medical appointments?: No Do you have trouble paying your heating and electricity bill?: Yes Do you have trouble taking care of your child, family member or friend?: No Do you have trouble with day-to-day activities such as bathing, preparing meals, shopping, managing finances, etc.?: No Are you currently unemployed and looking for a job?: No Are you interested in more education?: Yes Please select the resources that you would like help with: Paying for medicine, Job search/training and Education Currently or been in a relationship where the following occur: No concerns reported THRIVE Score: 2 AUDIT C Alcohol Use Questionnaire (AUDIT-C) 1. How often do you have a drink containing alcohol?: 2-4 times a month 2. How many drinks containing alcohol do you have on a typical day when you are drinking?: 1 or 2 3. How often do you have six or more drinks on one occasion?: Never Total Score: 2 TERESA-7 AMB Questionnaire TERESA-7 Date TERESA - 7 assessed: 08/22/24 Feeling nervous, anxious, or on edge: 1 = Several days Not being able to stop or control worryin = Several days Worrying too much about different things: 1 = Several days Trouble relaxin = Several days Being so restless that it is hard to sit still: 0 = Not at all Becoming easily annoyed or irritable: 0 = Not at all Feeling afraid as if something awful might happen: 0 = Not at all Total TERESA-7 score (0-4 normal; 5-9 mild; 10-14 moderate; 15-21 severe): 4 Source: Developed by Drs. Kai Lawson, Dian Alvarez, Umer Castillo and colleagues, with an educational ladonna from [employer]. TERESA-7 Assessment Billing TERESA-7 Assessment Tool: TERESA-7 Assessment 67908 Review of Systems Const Denies fatigue, Denies headache(s), Denies lethargy and Denies weakness Eyes Denies change in vision ENT Denies dizziness, Denies headache(s), Denies nasal congestion and Denies disequilibrium Card Denies chest pain, Denies lightheadedness and Denies dyspnea Resp Denies chest congestion, Denies cough, Denies dyspnea and Denies wheezing GI Denies abdominal pain, Denies change in bowel habits and Denies heartburn Denies hematuria, Denies difficulty urinating, Denies dysuria and Denies urinary frequency Musc Denies arthralgias, Denies joint swelling and Denies tingling Skin/Breast Denies lesions Neuro Denies dizziness, Denies headache(s), Denies tingling, Denies disequilibrium and Denies weakness Psych Reports as per HPI Endo Denies fatigue, Denies polydipsia and Denies polyuria Demar/Lymph Denies easy bruising Aller/Immun Denies seasonal rhinorrhea and Denies wheezing Physical exam (Primary Care) Tobacco/Smoking Status: Tobacco use Status Tobacco use date assessed 08/22/24 08/22/24 09:19 Patient Tobacco Use Status Never used Tobacco 08/22/24 09:18 e-Cigarette/Vaping Use Never Used 08/22/24 09:18 PHQ-9: PHQ-9 Score PHQ-9: Total score 5 08/22/24 10:12 Depression Screening Interpretation: Positive Depression Screening Follow-up: Existing condition, In treatment (Goes to [facility] in counseling in [place], getting weekly therapy sessions) and Community Mental Health Worker F/U Thrive Assessment: Date of Thrive Assessment Date Thrive assessed 08/22/24 08/22/24 10:12 Currently or been in a relationship where the following occur: No concerns reported Telehealth Telehealth Telehealth Platform: [facility] Location of provider rendering services: practice address Location of patient: address on file Patient Identification confirmed using: Name, : Yes Telehealth method: video Patient verbally consented to treatment: Yes Patient verbally consented to billing insurance company: Yes Patient informed of any privacy concerns related to visit: Yes Minutes spent on Phone/Video with Pt.: 20 Coding Level of Care Code Tele Est Pt Level 4 (85515) Complex EM visit Add On G2211 Diagnoses Type 2 diabetes mellitus with diabetic microalbuminuria, with long-term current use of insulin E11.29; R80.9; Z79.4 Diabetes mellitus complication detail: with diabetic microalbuminuria Diabetes mellitus jail insulin use: with jail use Anxiety and depression F41.9; F32.A Essential hypertension I10 Additional Codes TERESA-7 Assessment Billing - TERESA-7 Assessment Tool: TERESA-7 Assessment 44278 ([id number]) PHQ-9 - 27837 - PHQ-9 Billing: Yes ([id number]) Assessment & Plan Assessment & Plan (1) Type 2 diabetes mellitus with renal complication: Code(s): E11.29 - Type 2 diabetes mellitus with other diabetic kidney complication Category: Medical Qualifiers: Diabetes mellitus complication detail: with diabetic microalbuminuria Diabetes mellitus 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 - Continue metformin , Lantus , and semaglutide as per current regimen. Refill insulin prescription. - Continue lisinopril for blood pressure management. - Monitor cholesterol and consider pharmacological intervention in light of diabetes mellitus - Encourage ongoing therapy for depression and anxiety; FMLA leave extended to go from 09/05/24-12/04/2024 to support mental health. - Schedule appointments for regular diabetes and hypertension follow-up and an annual physical in July. -patient states he is going to make an appointment for his diabetes retinopathy screening which [facility] -up-to-date with his flu vaccine, does not want to get COVID booster up-to-date with his pneumococcal vaccine and Tdap. -advised to schedule follow-up appointment with [facility] Patient was informed and verbally consented to the use of an ambient scribe for clinic note documentation during this visit. Orders: Orders Alanine Aminotransferase Today E11.29 - Type 2 diabetes mellitus with other diabetic kidney complication, F32.A - Depression, unspecified, F41.9 - Anxiety disorder, unspecified, I10 - Essential (primary) hypertension, R80.9 - Proteinuria, unspecified, Z79.4 - [facility] (current) use of insulin Lipid Panel Today E11.29 - Type 2 diabetes mellitus with other diabetic kidney complication, F32.A - Depression, unspecified, F41.9 - Anxiety disorder, unspecified, I10 - Essential (primary) hypertension, R80.9 - Proteinuria, unspecified, Z79.4 - [facility] (current) use of insulin Hemoglobin A1c Today E11. - Type 2 diabetes mellitus with other diabetic kidney complication, F32.A - Depression, unspecified, F41.9 - Anxiety disorder, unspecified, I10 - Essential (primary) hypertension, R80.9 - Proteinuria, unspecified, Z79.4 - [facility] (current) use of insulin Basic Metabolic Panel Fasting Today E11.29 - Type 2 diabetes mellitus with other diabetic kidney complication, F32.A - Depression, unspecified, F41.9 - Anxiety disorder, unspecified, I10 - Essential (primary) hypertension, R80.9 - Proteinuria, unspecified, Z79.4 - [facility] (current) use of insulin Aspartate Amino Transferase Today E11.29 - Type 2 diabetes mellitus with other diabetic kidney complication, F32.A - Depression, unspecified, F41.9 - Anxiety disorder, unspecified, I10 - Essential (primary) hypertension, R80.9 - Proteinuria, unspecified, Z79.4 - [facility] (current) use of insulin Medications: New Lantus Solostar U-100 Insulin (insulin glargine) 68 units (0.68 mL) subcut QPM 15 mL 0RF NS Refilled metformin ER 750 mg PO BID 180 tabs 4RF 90 days
== END 2024-08-22 12:02 | disposition home or self-care (01) ==
LOC: HO.HMCC 09:19
PROVIDERS: PCP Internal Medicine; Visit Provider Internal Medicine
DX: E11.29 Type 2 diabetes mellitus with other diabetic kidney complication (principal); R80.9 Proteinuria, unspecified; Z79.4 Long term (current) use of insulin; F41.9 Anxiety disorder, unspecified; F32.A Depression, unspecified; I10 Essential (primary) hypertension

== ENCOUNTER → 2024-08-22 09:19 | Outpatient (BNVA) | payer OTHER, SELFPAY | PROVIDERS: PCP Internal Medicine; Visit Provider Internal Medicine | DX: E11.29 Type 2 diabetes mellitus with other diabetic kidney complication (principal); R80.9 Proteinuria, unspecified; F32.A Depression, unspecified; F41.9 Anxiety disorder, unspecified; I10 Essential (primary) hypertension; Z79.4 Long term (current) use of insulin; Z79.899 Other long term (current) drug therapy | CPT/HCPCS: 96127 ==